=== PATIENT | female | born 1960 | race Caucasian/White ===

== ENCOUNTER 2022-10-05 11:30 | Emergency (ER) | payer BC ==
[2022-10-05 12:25] LABS: BASO # 0.01 K/mm3 (0.02-0.10); EOS # 0.09 K/mm3 (0.04-0.40); EOS % 1.4 % (1.0-5.0); HEMOGLOBIN 14.2 g/dL (12.5-16.0); LYMPH# 1.66 K/mm3 (1.50-4.00); MEAN CELL VOLUME 89 fl (78-100); MEAN CORPUSCULAR HEMOGLOBIN 29 pg (27-31); MEAN CORPUSCULAR HGB CONC 32 g/dL (33-37); MEAN PLATELET VOLUME 9.2 fl (7.4-10.4); MONO # 0.38 K/mm3 (0.20-0.80); PLATELET COUNT 257 K/mm3 (130-400); RED BLOOD COUNT 4.96 M/mm3 (4.10-5.30); RED CELL DISTRIBUTION WIDTH 12.5 % (11.5-14.5); WHITE BLOOD COUNT 6.5 K/mm3 (4.8-10.8)
[2022-10-05 12:36] LABS: POTASSIUM 3.6 mmol/L (3.5-5.1)
[2022-10-05 12:37] LABS: CALCIUM 9.4 mg/dL (8.3-10.5)
[2022-10-05] MEDS ORDERED: SERTRALINE50 MG PO (13:03)
[2022-10-05] MEDS ORDERED: BENTYL 20MG20 MG/TAB PO (13:03)
[2022-10-05] MEDS ORDERED: LEVOTHYROXIN0.025 MG PO (13:03)
[2022-10-05] MEDS ORDERED: ROSUVASTATIN CA20 MG PO (13:03)
[2022-10-05 18:44] VITALS: BP 148/79
== END 2022-10-05 18:40 | disposition short-term general hospital (02) ==
LOC: ED 11:30
PROVIDERS: Family Medicine
DX: R04.0 Epistaxis (principal); F41.9 Anxiety disorder, unspecified; I10 Essential (primary) hypertension
CPT/HCPCS: J2060